=== PATIENT | male | born 1950 | race Caucasian/White ===

== ENCOUNTER 2019-06-30 07:36 | Outpatient (CLI) | payer MEDICARE, SELFPAY ==
--- NOTE | ~2019-06-30 | CT_ITS ---
EXAMINATION: CT abdomen pelvis wo/w con DATE: 06/30/2019 08:24 INDICATION: Right renal mass TECHNIQUE: Computed tomography (CT) of the abdomen was obtained without intravenous contrast then kirsten ges of the abdomen and pelvis were performed following the administration of 100 mL Omnipaque 350 in travenous contrast. The dose-length product (DLP) was 2494.25 mGy-cm. Automated exposure control and iterative reconstruction technique were employed. COMPARISON: 06/08/2018, 09/07/2017; MRI, 10/30/2016 FINDINGS: Minimal dependent atelectasis is present in the lung bases. The heart size is normal. Coron norberto artery stents are noted. The gallbladder is surgically absent. The liver, spleen, pancreas, and a drenal glands are normal. There is a 5.7 x 4.2 cm cystic lesion of the right kidney with thin interna l septation and thin septal calcification, not significantly changed since the comparison examination s. The right kidney is unremarkable. No stones are identified in the kidneys, ureters, or bladder. Th ere is no hydronephrosis or hydroureter. No pathologically enlarged abdominal or pelvic lymph nodes a re identified. There is no free intraperitoneal gas or evidence of bowel obstruction. The appendix is normal. There is mild lumbar spondylosis. . There are bridging osteophytes at multiple levels in th e thoracic spine, consistent with diffuse idiopathic skeletal hyperostosis (DISH). IMPRESSION: 1. Bosniak II right renal cyst without suspicious change. Reviewed, dictated and finalized at location A. [employer]
[2019-06-30 08:14] LABS: Blood Urea Nitrogen 27 mg/dL (8-26); Estimated Glomerular Filt Rate > 60
== END 2019-06-30 07:37 | disposition home or self-care (01) ==
LOC: ANHIMG 07:48
PROVIDERS: Visit Provider Urology
DX: N28.89 Other specified disorders of kidney and ureter (principal)
CPT/HCPCS: 74178; Q9967